=== PATIENT | male | born 1990 | race Caucasian/White ===

== ENCOUNTER 2023-01-10 04:26 | Emergency (ER) | payer OTHER ==
[2023-01-10] MEDS ORDERED: CLAR5TAB7 PO (06:27)
[2023-01-10] MEDS ORDERED: ALBU6.7H6 INH (06:27)
[2023-01-10 06:33] VITALS: BP 140/70
== END 2023-01-10 06:51 | disposition home or self-care (01) ==
LOC: M ED 04:26
DX: J00 Acute nasopharyngitis [common cold] (principal); R06.02 Shortness of breath; Z79.52 Long term (current) use of systemic steroids; Z79.899 Other long term (current) drug therapy